=== PATIENT | male | born 2000 ===

== ENCOUNTER 2018-04-12 23:29 | Emergency (ER) | payer MEDICAID, OTHER ==
[2018-04-12 23:41] VITALS: BMI 21.1
[2018-04-12 23:42] VITALS: PULSE 75; O2SAT 100
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
[2018-04-13 02:35] VITALS: BP 129/92; RESP 18; TEMP 98.4
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
== END 2018-04-13 01:57 | disposition home or self-care (01) ==
LOC: H.ER 23:29
DX: S00.83XA Contusion of other part of head, initial encounter (principal); S01.81XA Laceration without foreign body of other part of head, initial encounter; H11.32 Conjunctival hemorrhage, left eye; Z23 Encounter for immunization